=== PATIENT | female | born 1970 | race Hispanic/Latino ===

== ENCOUNTER 2020-02-29 09:46 | Emergency (ER) | payer OTHER ==
[~2020-02-29] VITALS: Ht 152.4 cm; Wt 90.7 kg
--- NOTE | 2020-02-29 10:34 | NUR ---
SATS IN 80% WITH CRISPWAVE FORM AND CORRESPONDING HEART AND PULSE RATE. MD NOTIFIED. FI02 INCREASED TO 100%, INCREASED PEEP FROM 8 TO 10 PER MD AND RELAYED TO LEGAL WRITING PROFESSOR. RATE 16, VT 400 PER MD SETTINGS.
--- NOTE | 2020-02-29 10:37 | NUR ---
MULTIPLE ATTEMPTS TO GET RECTAL TEMP WITH DIFFERENT THERMOMETERS AND CANNOT GET ANY READ. MD NOTIFIED. CALLED ICU FOR BEAR DENNISE AND JAMIL TEMP PROBE.
--- NOTE | 2020-02-29 10:38 | NUR ---
PT IS ON DEFIB. PADS WITH CRASH CART AT BEDSIDE.
--- NOTE | 2020-02-29 11:11 | NUR ---
NEGRON THERMOMETER IN PLACE MONITORING. HYPOTHERMIC, MD NOTIFIED AND AWARE. BJ BOWDEN ON PT ON HIGH SETTING. LEFT WRIST RESTRAINT ON PER MD VERBAL ORDER. RBVO AND IS PLACING ORDER IN COMPUTER. REPORT GIVEN TO VIV BRUCE AND OFFERED OPPORTUNITY TO ANSWER ANY QUESTIONS IF HAD ANY. NURSE ACCEPTED PT.
--- NOTE | 2020-02-29 11:23 | NUR ---
MD NOTIFIED OF NEED FOR NEGRON ORDER AND NOTIFIED ABSOLUTELY NO URINE OUTPUT WIHT NEGRON PLACEMENT. NEGRON REMOVED WITH CRUSTED AND YELLOW PUSS LIKE IN COLOR AND CONSISTANCY.
--- NOTE | 2020-02-29 11:29 | NUR ---
STILL NO URINE OUTPUT IN NEGRON, NOTIFIED. ASKED NEGRON ORDER PLACED BY JANIS. JAMAL AND ORDER PLACED. CHARTED NEGRON.PREVIOUS NEGRON CRUSTED, SEDIMENT AND YELLOW PUSS.
[2020-02-29 11:42] LABS: BASOPHILS # (AUTO) 0.1 (0.0-0.1); BASOPHILS % 0.3 % (0.0-1.0); EOSINOPHILS # (AUTO) 0.2 (0.0-0.4); EOSINOPHILS % 0.4 % (0.0-6.0); LYMPHOCYTES # (AUTO) 2.1 (1.0-3.2); LYMPHOCYTES % 5.6 % (18.0-39.1); MEAN CORPUSCULAR HGB CONC 30.8 g/dL (31-35); MEAN CORPUSCULAR VOLUME 84.6 fL (81-99); MONOCYTES # (AUTO) 0.5 (0.2-0.8); MONOCYTES % 1.3 % (4.4-11.3); NEUTROPHILS # (AUTO) 33.7 (2.1-6.9); NEUTROPHILS % 88.9 % (38.7-80.0); PLATELET COUNT 356 x10e3/uL (140-360); RED BLOOD COUNT 2.46 x10e6/uL (3.6-5.1); RED CELL DISTRIBUTION WIDTH 15.4 % (11.7-14.4)
[2020-02-29 11:43] LABS: ALANINE AMINOTRANSFERASE 20 IU/L (0-55); ALBUMIN 1.2 g/dL (3.5-5.0); ALBUMIN/GLOBULIN RATIO 0.3 (0.8-2.0); ALKALINE PHOSPHATASE 469 IU/L (40-150); ANION GAP 15.8 mmol/L (8-16); BLOOD UREA NITROGEN 120 mg/dL (7-26); BUN/CREATININE RATIO 64 (6-25); CALCIUM 8.2 mg/dL (8.4-10.2); CARBON DIOXIDE 24 mmol/L (22-29); CHLORIDE 91 mmol/L (98-107); CREATINE KINASE 60 IU/L (29-168); CREATININE, SERUM 1.87 mg/dL (0.57-1.11); EST GLOMERULAR FILTRATION RATE 29 ML/MIN (60-); GLUCOSE 160 mg/dL (74-118); POTASSIUM 3.8 mmol/L (3.5-5.1); SODIUM 127 mmol/L (136-145)
[2020-02-29 11:44] LABS: HEMATOCRIT 20.8 % (34.2-44.1); HEMOGLOBIN 6.4 g/dL (12.0-16.0)
[2020-02-29] MEDS ORDERED: CEFEPIME 1GM/NS 0.9% 50 ML 50 ML IV STA (12:20)
[2020-02-29] MEDS ORDERED: SODIUM CHLORIDE 0.9% 1000ML 1,000 ML IV STA ×3 (12:20→14:12)
--- NOTE | 2020-02-29 13:00 | Diagnostic Imaging Report ---
X-ray chest AP portable Comparison: None History: Hypoxia Findings: The tracheostomy tube is in place. A right arm route PICC line with the tip overlying SVC. Central airways are patent. There is no pneumothorax. Right costophrenic angle is excluded from the image. The lungs are hypoaerated. There is bilateral diffuse increase in opacity of both lungs with air bronchograms in the right mid and lower lung zones and the left lower lung zone. Visualized skeletal structures unremarkable. Upper abdomen shows gastric distention with air. Impression: Diffuse bilateral pulmonary opacities the findings of airspace and interstitial disease. Typical and atypical pneumonia, edema, ARDS would be considered in an otherwise extensive list of differential diagnoses for this finding. Signed by: Cal Cintron MD on 02/29/2020 12:56 PM
[2020-02-29] MEDS ORDERED: NOREPINEPHRINE INJ 4MG/4ML 8 MG in DEXTROSE 5% 250ML 250 ML IV STA (14:07)
--- NOTE | 2020-02-29 14:26 | Emergency Department Note ---
History of Present Illnes History of Present Illness Chief Complaint: COVID PUI History of Present Illness This is a 49 year old female . 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 Any updates have been documented here. 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 Other Surgery: TRACH PEG TUBE Social History Smoking Cessation: Unknown if ever smoked Counseling Performed: No Alcohol Use: None Other Last Flu: UNKNOWN Last Pneumovax: UNKNOWN Physical Exam Related Data Allergies: Coded Allergies: No Known Allergies (Unverified , 02/29/20) Triage Vital Signs Vital Signs Date Time Temp Pulse Resp B/P (MAP) Pulse Ox O2 Delivery O2 Flow Rate FiO2 02/29/20 09:47 90 Mechanical Ventilator 02/29/20 09:47 39 24 72/51 02/29/20 10:20 21.0 02/29/20 11:09 81.0 Vital signs reviewed: Yes Physical Exam CONSTITUTIONAL Constitutional: Present cachectic, Present ill appearing HENT HENT: Present normocephalic, Present atraumatic, Present other (trache in place) HENT L/R: Present left ext ear normal, Present right ext ear normal EYES Eyes: Reports PERRL, Reports conjunctivae normal NECK Neck: Present other (+trache) PULMONARY Pulmonary: Present effort normal, Present respiratory distress CARDIOVASCULAR Cardiovascular: Present tachycardia GASTROINTESTINAL Abdominal: Present soft, Present nontender, Present other (+PEG TUBE) GENITOURINARY SKIN Skin: Present dry MUSCULOSKELETAL Musculoskeletal: Present other (lower extremity wasting ); Absent ROM normal NEUROLOGICAL Neurological: Absent alert, Absent oriented x 3 PSYCHOLOGICAL Psychological: Absent mood/affect normal, Absent behavior normal, Absent thought content normal Results Laboratory Result Diagram: 02/29/20 1027 02/29/20 1027 Laboratory Laboratory Tests Test 02/29/20 10:27 White Blood Count 37.86 x10e3/uL (4.8-10.8) Red Blood Count 2.46 x10e6/uL (3.6-5.1) Hemoglobin 6.4 g/dL (12.0-16.0) Hematocrit 20.8 % (34.2-44.1) Mean Corpuscular Volume 84.6 fL (81-99) Mean Corpuscular Hemoglobin 26.0 pg (28-32) Mean Corpuscular Hemoglobin Concent 30.8 g/dL (31-35) Red Cell Distribution Width 15.4 % (11.7-14.4) Platelet Count 356 x10e3/uL (140-360) Neutrophils (%) (Auto) 88.9 % (38.7-80.0) Lymphocytes (%) (Auto) 5.6 % (18.0-39.1) Monocytes (%) (Auto) 1.3 % (4.4-11.3) Eosinophils (%) (Auto) 0.4 % (0.0-6.0) Basophils (%) (Auto) 0.3 % (0.0-1.0) Neutrophils # (Auto) 33.7 (2.1-6.9) Lymphocytes # (Auto) 2.1 (1.0-3.2) Monocytes # (Auto) 0.5 (0.2-0.8) Eosinophils # (Auto) 0.2 (0.0-0.4) Basophils # (Auto) 0.1 (0.0-0.1) Absolute Immature Granulocyte (auto 1.33 x10e3/uL (0-0.1) Sodium Level 127 mmol/L (136-145) Potassium Level 3.8 mmol/L (3.5-5.1) Chloride Level 91 mmol/L (98-107) Carbon Dioxide Level 24 mmol/L (22-29) Anion Gap 15.8 mmol/L (8-16) Blood Urea Nitrogen 120 mg/dL (7-26) Creatinine 1.87 mg/dL (0.57-1.11) Estimat Glomerular Filtration Rate 29 ML/MIN (60-) BUN/Creatinine Ratio 64 (6-25) Glucose Level 160 mg/dL (74-118) Lactic Acid Level 3.5 mmol/L (0.5-2.0) Calcium Level 8.2 mg/dL (8.4-10.2) Total Bilirubin 0.5 mg/dL (0.2-1.2) Aspartate Amino Transf (AST/SGOT) 69 IU/L (5-34) Alanine Aminotransferase (ALT/SGPT) 20 IU/L (0-55) Alkaline Phosphatase 469 IU/L (40-150) Creatine Kinase 60 IU/L (29-168) Creatine Kinase MB 4.90 ng/mL (0-5.0) Troponin I < 0.001 ng/mL (0-0.300) Total Protein 5.6 g/dL (6.5-8.1) Albumin 1.2 g/dL (3.5-5.0) Globulin 4.4 g/dL (2.3-3.5) Albumin/Globulin Ratio 0.3 (0.8-2.0) Lab results reviewed: Yes Assessment & Plan Medical Decision Making MDM 49-year-old female arrived to the ED from custodial for possible change in mental status. Patient unable to provide history given trach/vent dependent as well as mental status. Concerns of severe sepsis at 1110 given MAP of 63 Lactic acid, blood cultures and broad-spectrum antibiotics given- 1300 patient noted to be in septic shock given persistent hypotension Fluid resuscitation done with 3L IVFs, fluid bolus was completed within 3 hours. Bedside volume reassessment done, patient required pressor support as she was minimally responsive to fluid resuscitation- there were concerns of possible Covid 19-related illness and therefore the initial concern was to be conservative with the use of IV fluids and normal SEP-1 Guidelines were initially deviated from. Assessment & Plan Final Impression: (1) Septic shock Last Vital Signs Date Time Temp Pulse Resp B/P (MAP) Pulse Ox O2 Delivery O2 Flow Rate FiO2 02/29/20 13:38 86.7 43 18 74/51 100 02/29/20 10:20 21.0 02/29/20 09:47 Mechanical Ventilator Medications in the ED Cefepime HCl 50 ml @ 100 mls/hr ONCE STAT IV Last administered on 02/29/20at 13:00; Admin Dose 100 MLS/HR; Start 02/29/20 at 12:20; Stop 02/29/20 at 12:49; Status DC Sodium Chloride 1,000 ml @ 0 mls/hr Q0M STAT IV Last administered on 02/29/20at 13:15; Admin Dose 1,000 MLS/HR; Start 02/29/20 at 12:20; Stop 02/29/20 at 12:22; Status DC Sodium Chloride 1,000 ml @ 0 mls/hr Q0M STAT IV Last administered on 02/29/20at 13:00; Admin Dose 1,000 MLS/HR; Start 02/29/20 at 12:20; Stop 02/29/20 at 12:22; Status DC PONCE MENARD DO Feb 29, 2020 14:26
[2020-02-29] MEDS ORDERED: NOREPINEPHRINE INJ 4MG/4ML 8 MG in DEXTROSE 5% 250ML 250 ML IV SCH (14:30)
--- NOTE | 2020-02-29 16:30 | NUR ---
LEVOPHED INCREASED TO 10 MCG/MIN
--- NOTE | 2020-02-29 16:42 | NUR ---
TRANSFER ATTEMPTED TO [facility]. DECLINED BED CAPSITY. FIRST CONTACT 1453 SECOND ATTEMPT TO [facility], FIRST CONTACT [id number]
--- NOTE | 2020-02-29 17:00 | NUR ---
LEVOPHED INCREASED TO 15 MCG/MIN
--- NOTE | 2020-02-29 18:30 | NUR ---
LEVOPHEN INCREASED TO 20MCG/MIN
--- NOTE | 2020-02-29 19:00 | NUR ---
still no urinary output
[2020-02-29] MEDS ORDERED: VANCOMYCIN 1GM/NS 250 ML 250 ML IV ONE (19:30)
--- NOTE | 2020-02-29 19:30 | NUR ---
levophed increased to 25mcg/min
--- NOTE | 2020-02-29 20:01 | NUR ---
Vent settings PRVC Vt 400/ R 16/ Fio2 100/ PEEP 10/ Peak pressures have been 36-38, RR 23-30
--- NOTE | 2020-02-29 20:50 | NUR ---
levophed increased to 30mcg/min.
== END 2020-03-01 00:25 | disposition other institution (70) ==
LOC: ER 09:55
DX: R65.21 Severe sepsis with septic shock (principal); Z11.59 Encounter for screening for other viral diseases; L89.899 Pressure ulcer of other site, unspecified stage; I10 Essential (primary) hypertension; G40.909 Epilepsy, unspecified, not intractable, without status epilepticus; I69.351 Hemiplegia and hemiparesis following cerebral infarction affecting right dominant side; I69.320 Aphasia following cerebral infarction
CPT/HCPCS: 36415; 51700; 71045; 80053; 82550; 82553; 83605; 84484; 85025; 87040; 87635; 94002; 94760; 99285; J0692; J3370; J7030